=== PATIENT | female | born 1990 | race Two or more races ===

== ENCOUNTER → 2018-07-15 | Emergency (ER) | payer OTHER ==
[~2018-07-15] VITALS: Ht 172.7 cm; Wt 74.8 kg
[~2018-07-15] MED LIST: IBUPROFEN800 MG PO; PRENATAL1 TAB PO
== END | disposition left against medical advice (07) ==
LOC: ER 14:54
DX: Z53.20 Procedure and treatment not carried out because of patient's decision for unspecified reasons (principal)

== ENCOUNTER → 2018-08-26 | Outpatient (CLI) | payer OTHER | END | disposition home or self-care (01) | LOC: MAMO-SONO 08:15 → SONOGRAMA 09:30 | DX: Z12.31 Encounter for screening mammogram for malignant neoplasm of breast (principal) ==

== ENCOUNTER 2018-12-12 08:50 | Emergency (ER) | payer OTHER ==
[~2018-12-12] VITALS: Ht 170.2 cm; Wt 72.6 kg
== END 2018-12-12 14:47 | disposition home or self-care (01) ==
LOC: ER 08:50
DX: R10.2 Pelvic and perineal pain (principal)